=== PATIENT | female | born 1945 | race Caucasian/White ===

== ENCOUNTER 2018-04-24 12:31 | Inpatient (IN) | payer OTHER ==
--- NOTE | 2018-04-24 13:01 | EDPHY ---
H & P Time Seen by Provider: 04/24/18 13:00 HPI/ROS: Chief complaint. Diarrhea HPI. Patient is 72-year-old female presents with complaint diarrhea for 2 weeks. She is visiting from [place] and arrived about a week ago. She is staying until May 17. Diarrhea was already starting prior to arrival in [place]. She has not been on antibiotics recently. No blood in stool. She has vomited 3 times over the past 2 weeks. Diarrhea however is daily and precipitated by eating. She has no abdominal pain. She does have some right low back pain. Worse with movement. No chest pain, shortness of breath, fever. ROS 10 systems were reviewed and negative with the exception of the elements mentioned in the history of present illness Past Medical/Surgical History: Past medical history significant for chronic renal insufficiency, lupus, osteoporosis, macular degeneration, rheumatoid arthritis Social History: Single, nonsmoker, no alcohol Smoking Status: Never smoked Physical Exam: General Appearance: Alert pleasant well-developed female mild distress vital signs are stable Eyes: Pupils equal and round no pallor or injection. ENT, Mouth: Mucous membranes are moist. Respiratory: There are no retractions, lungs are clear to auscultation. Cardiovascular: Regular rate and rhythm. Gastrointestinal: Abdomen is soft and nontender, no masses, bowel sounds normal. Neurological: Awake and alert, sensory and motor exams grossly normal. Skin: Warm and dry, no rashes. Musculoskeletal: Neck is supple nontender. Tenderness on the right side adjacent to mid lumbar the back. Worse with palpation and movement Extremities symmetrical, full range of motion. Psychiatric: Patient is oriented X 3, there is no agitation. Constitutional: Initial Vital Signs Temperature (C) 36.4 C 04/24/18 12:36 Heart Rate 96 04/24/18 12:36 Respiratory Rate 16 04/24/18 12:36 Blood Pressure 136/94 H 04/24/18 12:36 O2 Sat (%) 95 04/24/18 12:36 O2 Delivery Mode Room Air Allergies/Adverse Reactions: Penicillins Allergy (Verified 04/24/18 12:35) Home Medications: Medication Instructions Recorded ACETAZOLAMIDE 04/24/18 Atorvastatin Calcium 04/24/18 Cartia Xt 04/24/18 Famotidine 04/24/18 Iron 04/24/18 Levothyroxine 04/24/18 Losartan Potassium 04/24/18 Mycophenolate Mofetil 04/24/18 Ondansetron HCl Pf 04/24/18 Prednisone 04/24/18 Prevalite Packet 04/24/18 Tramadol HCl 04/24/18 VENLAFAXINE HCL 04/24/18 Vitamin D3 04/24/18 Medical Decision Making Procedures: IV normal saline ED Course/Re-evaluation: Re-evaluation 2:10 p.m. Patient is stable. She has had 1 L saline but still no urge to urinate. No diarrhea. Patient and I discussed laboratory evaluation. Patient does not know what her baseline BUN and creatinine are. She will be given another L of saline Re-evaluation at 3:10 p.m.. Patient is stable. She has now had her 2nd L of saline and still no urge to urinate. No diarrhea. She will be given a third L of saline Repeat Chem 7 shows a potassium 2.8. She still has some acidosis with a CO2 of 14. Patient is given supplemental potassium orally and IV in the emergency department Patient and I discussed treatment plan including recommendation for admission. She expresses understanding and agreement I consulted and discussed the case with Dr. Atkinson, hospitalist, who agrees to the admission Differential Diagnosis: Patient with a history of chronic renal insufficiency visiting from [facility] and we do not know her baseline renal function. She has had diarrhea for 2 weeks this could certainly be Clostridium difficile though there were no preceding antibiotics. She is unable to give us a stool sample. She has significant hypokalemia. - Data Points Laboratory Results: Laboratory Results 04/24/18 13:15 04/24/18 04/24/18 04/24/18 16:16 15:41 15:25 WBC RBC Hgb Hct MCV MCH MCHC RDW Plt Count MPV Neut % (Auto) Lymph % (Auto) [place] % (Auto) Eos % (Auto) Baso % (Auto) Nucleat RBC Rel Count Absolute Neuts (auto) Absolute Lymphs (auto) Absolute Monos (auto) Absolute Eos (auto) Absolute Basos (auto) Absolute Nucleated RBC Immature Gran % Immature Gran # Platelet Estimate Sodium Pending 141 mEq/L mEq/L (135-145) Potassium Pending 2.8 mEq/L L mEq/L (3.5-5.2) Chloride Pending 113 mEq/L H mEq/L (97-110) Carbon Dioxide Pending 14 mEq/l L mEq/l (22-31) Anion Gap Pending 14 mEq/L mEq/L (6-14) BUN Pending 29 mg/dL H mg/dL (7-23) Creatinine Pending 1.7 mg/dL H mg/dL (0.6-1.0) Estimated GFR Pending 30 Glucose Pending 104 mg/dL H mg/dL (70-100) Calcium Pending 8.5 mg/dL mg/dL (8.5-10.4) Specimen Hemolysis Urine Color YELLOW Urine Appearance CLEAR Urine pH 5.0 (5.0-7.5) Ur Specific [place] 1.010 (1.002-1.030) Urine Protein 1+ H (NEGATIVE) Urine Ketones TRACE H (NEGATIVE) Urine Blood 1+ H (NEGATIVE) Urine Nitrate NEGATIVE (NEGATIVE) Urine Bilirubin NEGATIVE (NEGATIVE) Urine Urobilinogen NEGATIVE EU EU (0.2-1.0) Ur Leukocyte Esterase 1+ H (NEGATIVE) Urine RBC 1-3 /hpf /hpf (0-3) Urine WBC 10-15 /hpf H /hpf (0-3) Ur Epithelial Cells TRACE /lpf /lpf (NONE-1+) Urine Bacteria TRACE /hpf H /hpf (NONE SEEN) Hyaline Casts 1-5 /lpf /lpf (0-1) Urine Mucus TRACE /lpf /lpf (NONE-1+) Urine Glucose NEGATIVE (NEGATIVE) 04/24/18 04/24/18 04/24/18 13:15 12:55 12:55 WBC 13.55 10^3/uL H 10^3/uL REJ (3.80-9.50) RBC 4.68 10^6/uL 10^6/uL REJ (4.18-5.33) Hgb 12.3 g/dL L g/dL REJ (12.6-16.3) Hct 39.6 % % REJ (38.0-47.0) MCV 84.6 fL fL REJ (81.5-99.8) MCH 26.3 pg L pg REJ (27.9-34.1) MCHC 31.1 g/dL L g/dL REJ (32.4-36.7) RDW 19.2 % H % REJ (11.5-15.2) Plt Count 391 10^3/uL 10^3/uL REJ (150-400) MPV 9.2 fL fL REJ (8.7-11.7) Neut % (Auto) 91.1 % H % REJ (39.3-74.2) Lymph % (Auto) 4.4 % L % REJ (15.0-45.0) [place] % (Auto) 3.7 % L % REJ (4.5-13.0) Eos % (Auto) 0.2 % L % REJ (0.6-7.6) Baso % (Auto) 0.1 % L % REJ (0.3-1.7) Nucleat RBC Rel Count 0.0 % % REJ (0.0-0.2) Absolute Neuts (auto) 12.35 10^3/uL H 10^3/uL REJ (1.70-6.50) Absolute Lymphs (auto) 0.59 10^3/uL L 10^3/uL REJ (1.00-3.00) Absolute Monos (auto) 0.50 10^3/uL 10^3/uL REJ (0.30-0.80) Absolute Eos (auto) 0.03 10^3/uL 10^3/uL REJ (0.03-0.40) Absolute Basos (auto) 0.01 10^3/uL L 10^3/uL REJ (0.02-0.10) Absolute Nucleated RBC 0.00 10^3/uL 10^3/uL REJ (0-0.01) Immature Gran % 0.5 % % REJ (0.0-1.1) Immature Gran # 0.07 10^3/uL 10^3/uL REJ (0.00-0.10) Platelet Estimate TNP Sodium 140 mEq/L mEq/L (135-145) Potassium 3.6 mEq/L mEq/L (3.5-5.2) Chloride 114 mEq/L H mEq/L (97-110) Carbon Dioxide 15 mEq/l L mEq/l (22-31) Anion Gap 11 mEq/L mEq/L (6-14) BUN 30 mg/dL H mg/dL (7-23) Creatinine 1.6 mg/dL H mg/dL (0.6-1.0) Estimated GFR 32 Glucose 104 mg/dL H mg/dL (70-100) Calcium 8.5 mg/dL mg/dL (8.5-10.4) Specimen Hemolysis 112 Urine Color Urine Appearance Urine pH Ur Specific [place] Urine Protein Urine Ketones Urine Blood Urine Nitrate Urine Bilirubin Urine Urobilinogen Ur Leukocyte Esterase Urine RBC Urine WBC Ur Epithelial Cells Urine Bacteria Hyaline Casts Urine Mucus Urine Glucose Medications Given: Discontinued Medications Sodium Chloride (Ns) 1,000 mls @ 0 mls/hr IV EDNOW ONE; Wide Open PRN Reason: Protocol Stop: 04/24/18 13:05 Last Admin: 04/24/18 13:15 Dose: 1,000 mls Sodium Chloride (Ns) 1,000 mls @ 0 mls/hr IV ONCE ONE; Wide Open PRN Reason: Protocol Stop: 04/24/18 14:17 Last Admin: 04/24/18 14:38 Dose: 1,000 mls Sodium Chloride (Ns) 1,000 mls @ 0 mls/hr IV ONCE ONE; Wide Open PRN Reason: Protocol Stop: 04/24/18 15:15 Last Admin: 04/24/18 15:57 Dose: Not Given Miscellaneous Medication (Icy Hot Lidocaine/Menthol 4%/1% Patch) 1 patch TD EDNOW ONE Stop: 04/24/18 15:17 Last Admin: 04/24/18 15:22 Dose: 1 patch Departure - Departure Disposition: [facility] Clinical Impression: Hypokalemia Diarrhea Qualifiers: Diarrhea type: unspecified type Qualified Code(s): R19.7 - Diarrhea, unspecified Condition: Fair Referrals: Morales Townsend, [Primary Care Provider] - As per Instructions
[2018-04-24] MEDS ORDERED: NS 1,000 ML IV ONE ×2 (13:04→14:16)
[2018-04-24 13:41] LABS: PLATELET COUNT 391 10^3/uL (150-400)
[2018-04-24] MEDS ORDERED: LIDOCAINE 4%/MENTHOL 1% PATCH TD ONE (15:16)
[2018-04-24] MEDS: NS 1,000 ML IV ONE ×2 (15:22→15:57)
[2018-04-24] MEDS ORDERED: POTASSIUM CL 20 MEQ TAB PO ONE (16:26)
[2018-04-24] MEDS ORDERED: POTASSIUM Cl (KCl) 20 MEQ in 1/2 NS 1,000 ML IV SCH ×2 (16:30→17:00)
--- NOTE | 2018-04-24 16:55 | PDGENHP ---
History and Physical - Chief Complaint Dehydration - History of Present Illness This 72-year-old female visiting from [place] with history of lupus, lupus nephritis, and subsequent stage 3 chronic kidney disease. Patient has had diarrhea for the past 2 weeks. She reports 6 nonbloody stools per day. Couple days ago she had 3-4 bouts of emesis. Her appetite has been very poor. She denies any fevers but has some chills. She was seen by her daughters primary care provider Dr. Townsend earlier today was subsequently referred to the emergency department for further evaluation. In the emergency department today gave her some IV fluids and noted low potassium and asked me to admit the patient to the hospital for further evaluation and treatment. Patient has not had any diarrhea since coming to the hospital. History Information - Allergies/Home Medication List Allergies/Adverse Reactions: Penicillins Allergy (Verified 04/24/18 12:35) Home Medications: ACETAZOLAMIDE 04/24/18 [Last Taken Unknown] Atorvastatin Calcium 04/24/18 [Last Taken Unknown] Cartia Xt 04/24/18 [Last Taken Unknown] Famotidine 04/24/18 [Last Taken Unknown] Iron 04/24/18 [Last Taken Unknown] Levothyroxine 04/24/18 [Last Taken Unknown] Losartan Potassium 04/24/18 [Last Taken Unknown] Mycophenolate Mofetil 04/24/18 [Last Taken Unknown] Ondansetron HCl Pf 04/24/18 [Last Taken Unknown] Prednisone 04/24/18 [Last Taken Unknown] Prevalite Packet 04/24/18 [Last Taken Unknown] Tramadol HCl 04/24/18 [Last Taken Unknown] VENLAFAXINE HCL 04/24/18 [Last Taken Unknown] Vitamin D3 04/24/18 [Last Taken Unknown] I have personally reviewed and updated: family history, medical history, social history, surgical history Past Medical History: SLE, lupus nephritis, stage 3 chronic kidney disease with unknown baseline creatinine, heart murmur - Surgical History Additional surgical history: Right total knee arthroplasty - Social History Smoking Status: Never smoked Alcohol Use: None Drug Use: None Review of Systems Review of Systems: ROS: 10pt was reviewed & negative except for what was stated in HPI & below Physical Exam Physical Exam: Temp Pulse Resp BP Pulse Ox 36.4 C 82 18 133/58 H 97 04/24/18 12:36 04/24/18 16:28 04/24/18 16:28 04/24/18 16:28 04/24/18 16:28 Constitutional: no apparent distress, appears nourished, not in pain Eyes: PERRL, anicteric sclera, EOMI Ears, Nose, Mouth, Throat: moist mucous membranes, hearing normal, ears appear normal, no oral mucosal ulcers Cardiovascular: regular rate and rhythym, systolic murmur (Holosystolic grade 4 blowing murmur loudest left upper sternal border), No edema Respiratory: no respiratory distress, no rales or rhonchi, clear to auscultation Gastrointestinal: normoactive bowel sounds, soft, non-tender abdomen, no palpable masses Genitourinary: no bladder fullness, no bladder tenderness Skin: warm, normal color, no rashes or abrasions, no fluctuance, no induration, No mottled Musculoskeletal: full muscle strength, no muscle tenderness, normal joint ROM, no joint effusions Neurologic: AAOx3, CN II-XII Intact, No facial droop Psychiatric: interacting appropriately, not anxious, not encephalopathic, thought process linear Lymph, Heme, Immunologic: no cervical LAD, no supraclavicular LAD Lab Data & Imaging Review 04/24/18 13:15 04/24/18 16:16 WBC 13.55 10^3/uL (3.80-9.50) H 04/24/18 13:15 RBC 4.68 10^6/uL (4.18-5.33) 04/24/18 13:15 Hgb 12.3 g/dL (12.6-16.3) L 04/24/18 13:15 Hct 39.6 % (38.0-47.0) 04/24/18 13:15 MCV 84.6 fL (81.5-99.8) 04/24/18 13:15 MCH 26.3 pg (27.9-34.1) L 04/24/18 13:15 MCHC 31.1 g/dL (32.4-36.7) L 04/24/18 13:15 RDW 19.2 % (11.5-15.2) H 04/24/18 13:15 Plt Count 391 10^3/uL (150-400) 04/24/18 13:15 MPV 9.2 fL (8.7-11.7) 04/24/18 13:15 Neut % (Auto) 91.1 % (39.3-74.2) H 04/24/18 13:15 Lymph % (Auto) 4.4 % (15.0-45.0) L 04/24/18 13:15 [place] % (Auto) 3.7 % (4.5-13.0) L 04/24/18 13:15 Eos % (Auto) 0.2 % (0.6-7.6) L 04/24/18 13:15 Baso % (Auto) 0.1 % (0.3-1.7) L 04/24/18 13:15 Nucleat RBC Rel Count 0.0 % (0.0-0.2) 04/24/18 13:15 Absolute Neuts (auto) 12.35 10^3/uL (1.70-6.50) H 04/24/18 13:15 Absolute Lymphs (auto) 0.59 10^3/uL (1.00-3.00) L 04/24/18 13:15 Absolute Monos (auto) 0.50 10^3/uL (0.30-0.80) 04/24/18 13:15 Absolute Eos (auto) 0.03 10^3/uL (0.03-0.40) 04/24/18 13:15 Absolute Basos (auto) 0.01 10^3/uL (0.02-0.10) L 04/24/18 13:15 Absolute Nucleated RBC 0.00 10^3/uL (0-0.01) 04/24/18 13:15 Immature Gran % 0.5 % (0.0-1.1) 04/24/18 13:15 Immature Gran # 0.07 10^3/uL (0.00-0.10) 04/24/18 13:15 Platelet Estimate TNP 04/24/18 13:15 Sodium REJ 04/24/18 16:16 Potassium TNP 04/24/18 16:16 Chloride TNP 04/24/18 16:16 Carbon Dioxide TNP 04/24/18 16:16 Anion Gap TNP 04/24/18 16:16 BUN TNP 04/24/18 16:16 Creatinine TNP 04/24/18 16:16 Estimated GFR TNP 04/24/18 16:16 Glucose TNP 04/24/18 16:16 Calcium TNP 04/24/18 16:16 Specimen Hemolysis 112 04/24/18 12:55 Urine Color YELLOW 04/24/18 15:25 Urine Appearance CLEAR 04/24/18 15:25 Urine pH 5.0 (5.0-7.5) 04/24/18 15:25 Ur Specific [place] 1.010 (1.002-1.030) 04/24/18 15:25 Urine Protein 1+ (NEGATIVE) H 04/24/18 15:25 Urine Ketones TRACE (NEGATIVE) H 04/24/18 15:25 Urine Blood 1+ (NEGATIVE) H 04/24/18 15:25 Urine Nitrate NEGATIVE (NEGATIVE) 04/24/18 15:25 Urine Bilirubin NEGATIVE (NEGATIVE) 04/24/18 15:25 Urine Urobilinogen NEGATIVE EU (0.2-1.0) 04/24/18 15:25 Ur Leukocyte Esterase 1+ (NEGATIVE) H 04/24/18 15:25 Urine RBC 1-3 /hpf (0-3) 04/24/18 15:25 Urine WBC 10-15 /hpf (0-3) H 04/24/18 15:25 Ur Epithelial Cells TRACE /lpf (NONE-1+) 04/24/18 15:25 Urine Bacteria TRACE /hpf (NONE SEEN) H 04/24/18 15:25 Hyaline Casts 1-5 /lpf (0-1) 04/24/18 15:25 Urine Mucus TRACE /lpf (NONE-1+) 04/24/18 15:25 Urine Glucose NEGATIVE (NEGATIVE) 04/24/18 15:25 Assessment & Plan Assessment: This is a 72-year-old female with history of SLE, stage 3 chronic kidney disease due to lupus nephritis presenting with: #Diarrhea: Unclear etiology. Plan: Stool pathogen panel is pending. Will also order of my Danita ventilate level since diarrhea is unknown adverse effect of this medication. # Hypokalemia (Acute) Plan: Will replace per protocol # suspected acute on chronic renal failure with unknown baseline creatinine Plan: Will provide gentle IV hydration overnight. Will attempt to obtain the patient's medical records from her primary care provider in the morning. # loud holosystolic heart murmur(asymptomatic) Plan: Recommend outpatient workup upon return home to [place] # pyuria(asymptomatic) Plan: Consider treatment if he becomes symptomatic or develops signs or symptoms of acute infection Place in observation status
[2018-04-24] MEDS ORDERED: PROTOCOL POTASSIUM 1 DOSE MISC PRN (17:00)
[2018-04-24] MEDS ORDERED: 1/2 NS 1,000 ML IV SCH (17:00)
[2018-04-24] MEDS ORDERED: PROTOCOL MAGNESIUM 1 DOSE IV PRN (17:00)
[2018-04-24] MEDS ORDERED: MAGNESIUM SULF 1 GM/DEXTROSE 100 ML IV ONE (18:06)
[2018-04-24] MEDS ORDERED: CHOLESTYRAMINE/SUCROSE 4 GM PKT PO PRN (19:02)
[2018-04-24] MEDS ORDERED: POTASSIUM CL 10 MEQ TAB PO ONE (19:19)
[2018-04-24] MEDS: ATORVASTATIN CALCIUM 10 MG TAB PO SCH (20:31)
[2018-04-24] MEDS ORDERED: FAMOTIDINE 20 MG TAB PO SCH (21:00)
[2018-04-24] MEDS ORDERED: PATCH REMOVAL 1 EA PATCH TD SCH (21:00)
[2018-04-24] MEDS: MYCOPHENOLATE MOFETIL 250 MG CAP PO SCH (22:08)
[2018-04-25 04:43] LABS: PLATELET COUNT 328 10^3/uL (150-400)
[2018-04-25] MEDS: LEVOTHYROXINE 75 MCG TAB PO SCH (06:46)
[2018-04-25] MEDS: MYCOPHENOLATE MOFETIL 250 MG CAP PO SCH ×2 (08:45→21:18)
[2018-04-25] MEDS: predniSONE 5 MG TAB PO SCH (08:47)
[2018-04-25] MEDS: CHOLECALCIFEROL VIT D3 1,000 UNITS TAB PO SCH (08:47)
[2018-04-25] MEDS: VENLAFAXINE HCL 75 MG TAB PO SCH (08:47)
[2018-04-25] MEDS ORDERED: POTASSIUM CL 10 MEQ TAB PO ONE ×2 (08:51→20:12)
[2018-04-25] MEDS: traMADol 50 MG TAB PO PRN (10:09)
[2018-04-25] MEDS: ONDANSETRON DISINTEGRATING 4 MG TAB PO PRN (10:24)
[2018-04-25] MEDS: hydrALAZINE 20 MG/ML VIAL IVP PRN ×2 (10:25→23:52)
[2018-04-25] MEDS ORDERED: NS W/ 20 KCl/L 1,000 ML IV SCH (12:30)
--- NOTE | 2018-04-25 13:08 | HOSPPROG ---
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 admitted for dehydration and diarrhea #Diarrhea: improving -Norovirus -Do not suspect Cell cept (level pending) or Acetazolamide or other med was contributing # Hypokalemia -Will replace per protocol #Metabolic Acidosis -Etiology likely multifactorial: 2nd to dehydration, acidosis, and Acetazolamide -Stable -cont IVF and hold Acetazolamide ?Pseudotumor Cerebri -chronic hx -denies NAQVI, visual deficits -Holding Acetazolamide #Dehydration: -IVF # suspected acute on chronic renal failure with unknown baseline creatinine -IVF #HTN: -Hold Losartan -Start Hydralazine PRN # loud holosystolic heart murmur(asymptomatic) -Recommend outpatient workup upon return home to [place] # pyuria(asymptomatic) -no abx at this time DVT Proph: likely high risk. Start Lovenox, renally dosed Dispo: Change to inpatient. Still symptomatic. provide more hydration Subjective: some oral intake, feels better overall. afebrile. diarrhea is improving Objective: Vital Signs Temp Pulse Resp BP Pulse Ox 37.0 C 99 15 141/77 H 98 04/25/18 11:53 04/25/18 11:53 04/25/18 11:53 04/25/18 11:53 04/25/18 11:53 Microbiology 04/24/18 18:15 Gastrointestinal Tract Panel (PCR) - Final Stool Norovirus Gi/Gii Laboratory Results 04/25/18 03:27 04/25/18 03:27 04/24/18 04/25/18 04/26/18 05:59 05:59 05:59 Intake Total 800 700 Output Total 700 Balance 800 0 - Physical Exam Constitutional: no apparent distress Eyes: PERRL Ears, Nose, Mouth, Throat: dry mucous membranes Cardiovascular: regular rate and rhythym, no murmur, rub, or gallop, systolic murmur Respiratory: no respiratory distress, no rales or rhonchi, clear to auscultation Gastrointestinal: normoactive bowel sounds, soft, non-tender abdomen, no palpable masses Skin: warm Neurologic: AAOx3 Psychiatric: interacting appropriately, not anxious, not encephalopathic Lymph, Heme, Immunologic: No petechiae ICD10 Worksheet Patient Problems: Problems Problem Status Onset Diarrhea Acute Hypokalemia Acute
[2018-04-25] MEDS: ACETAMINOPHEN 325 MG TAB PO PRN (14:01)
[2018-04-25] MEDS: FAMOTIDINE 20 MG TAB PO SCH (14:02)
[2018-04-25] MEDS: ENOXAPARIN 30 MG/0.3 ML SYR SC SCH (14:05)
--- NOTE | 2018-04-25 15:36 | ASMTCMCOM ---
CM Note CM Note Notes: Discussed pt in rounds. Pt lives in [place] and is here visiting daughter who has 8 month old infant. Pt admitted for norovirus, diarrhea and hypokalemia in the setting of Lupus and Lupus nephritis with Stage 3 CKD. Pt also has visual deficits related to a Pseudotumor. Pt will likely discharge tomorrow. Therapies ordered today to evaluate pt's ability to return to her daughter's home. Pt feels comfortable caring for herself independently, though she is using bedside commode and walker in the room. Pt provided with loan closet list in case she needs equipment for her dtr's house. CM to follow. D/C Plan: Independent to dtr's house. Date Signed: 04/25/2018 03:36 PM Electronically Signed By:Meghna Reeves
--- NOTE | 2018-04-25 15:44 | PDMN ---
Medical Necessity Medical necessity: Change to inpt as of 04/25/18 @ 13:20. Pt meets inpt criteria per MD order and MCG M-170, Gastroenteritis. 72 y/o w/hx SLE and stage 3 chronic kidney disease due to lupus nephritis admitted w/diarrhea, acute hypokalemia (K 2.8 on admit), suspected acute on chronic renal failure ( creatinine 1.7 on admit- baseline unknown). Occ tach w/HR up to 103 today, HTN- requiring IV Hydralazine today. Upgraded to inpt for cont symptoms/dehydration, need for IVF, rehydration, potassium still low, although improved, at 3.3- cont to replace, creatinine 1.4. Est LOS>2MN for ongoing eval/management of above.
[2018-04-25] MEDS: ATORVASTATIN CALCIUM 10 MG TAB PO SCH (21:18)
[2018-04-25] MEDS ORDERED: POTASSIUM CL 10 MEQ TAB ONE (21:21)
[2018-04-25] MEDS: CALCIUM CARBONATE 500 MG CHEWABLE TAB PO PRN (23:54)
[2018-04-26] MEDS: ONDANSETRON DISINTEGRATING 4 MG TAB PO PRN ×2 (01:35→11:39)
[2018-04-26 04:29] LABS: PLATELET COUNT 340 10^3/uL (150-400)
[2018-04-26] MEDS: LEVOTHYROXINE 75 MCG TAB PO SCH (05:13)
[2018-04-26] MEDS ORDERED: POTASSIUM CL 10 MEQ TAB PO ONE (07:28)
[2018-04-26] MEDS ORDERED: POTASSIUM CL 20 MEQ/15 ML UDCUP PO ONE (07:45)
[2018-04-26] MEDS: MYCOPHENOLATE MOFETIL 250 MG CAP PO SCH ×2 (08:38→19:46)
[2018-04-26] MEDS: CHOLECALCIFEROL VIT D3 1,000 UNITS TAB PO SCH (08:39)
[2018-04-26] MEDS: ENOXAPARIN 30 MG/0.3 ML SYR SC SCH (08:39)
[2018-04-26] MEDS: predniSONE 5 MG TAB PO SCH (08:39)
[2018-04-26] MEDS: FAMOTIDINE 20 MG TAB PO SCH (08:39)
[2018-04-26] MEDS: VENLAFAXINE HCL 75 MG TAB PO SCH (08:39)
[2018-04-26] MEDS: traMADol 50 MG TAB PO PRN (10:49)
--- NOTE | 2018-04-26 11:23 | HOSPPROG ---
Hospitalist Progress Note Assessment/Plan: # acute norovirus with gastroenteritis on chronic immunosuppression with dehydration # suspect CKD, unknown baseline SCr - follow tomorrow # NAGMA - suspect combination of renal and GI - follow on LR # tachycardia - d/t back pain or relative hypovolemia - follow with treatment of both (pain control and IVF) # lupus nephritis - cont pred, cellcept (level pending) # pseudotumor cerebri - holding diamox # hypothyroid - synthroid # htn - restart losartan at 1/2 dose - recheck BMP tomorrow # back pain - will treat as msk; consider PE but less likely overall # systolic murmur - f/u in [place] # asymptomatic bacteriuria - low colony counts, doubt UTI # dvt ppx - lovenox Subjective: c/o severe R sided back pain, starting while driving here; still having diarrhea; emesis x 1 last night Objective: Vital Signs Temp Pulse Resp BP Pulse Ox 37.0 C 115 H 15 158/90 H 97 04/26/18 07:46 04/26/18 07:46 04/26/18 07:46 04/26/18 07:46 04/26/18 07:46 Laboratory Results 04/26/18 03:47 04/26/18 03:47 04/25/18 04/26/18 04/27/18 05:59 05:59 05:59 Intake Total 2175 Output Total 2450 600 Balance -275 -600 chart reviewed high risk with ongoing viral gastroenteritis and renal insufficiency - Physical Exam Constitutional: uncomfortable, other (sitting on commode) Cardiovascular: systolic murmur, tachycardia, No irregularly irregular Respiratory: no respiratory distress, no rales or rhonchi, clear to auscultation Gastrointestinal: soft, non-tender abdomen, no palpable masses ICD10 Worksheet Patient Problems: Problems Problem Status Onset Diarrhea Acute Hypokalemia Acute
[2018-04-26] MEDS: oxyCODONE IR 5 MG TAB PO PRN ×2 (11:28→19:55)
[2018-04-26] MEDS: LR 1,000 ML IV SCH ×2 (11:29→19:49)
[2018-04-26] MEDS: LOSARTAN POTASSIUM 50 MG TAB PO SCH (11:39)
--- NOTE | 2018-04-26 13:39 | ASMTCMCOM ---
CM Note CM Note Notes: 04/26/2018 Case Management Note Met w/pt to discuss d/c needs. Pt is staying with her daughter until after May 15 2018 in [place]. Pt lives independently in [place]. Daughter Etta can be reached at [phone]. Discussed PT recommendation for home care. Pt is agreeable to referrals. Faxed multiple referrals to [facility] home care agencies. Pt is unsure of insurance coverage benefits. Case Management d/c poc: Home Care in daughter's house pending acceptance and insurance auth Case Management to follow. Date Signed: 04/26/2018 01:39 PM Electronically Signed By:Jelena Pompa RN
[2018-04-26] MEDS: hydrALAZINE 20 MG/ML VIAL IVP PRN (17:21)
[2018-04-26] MEDS: ATORVASTATIN CALCIUM 10 MG TAB PO SCH (19:46)
[2018-04-27] MEDS ORDERED: POTASSIUM CL 10 MEQ TAB PO ONE ×2 (02:25→11:20)
[2018-04-27] MEDS ORDERED: POTASSIUM CL 20 MEQ/15 ML UDCUP PO ONE ×2 (03:00→11:45)
[2018-04-27] MEDS: LEVOTHYROXINE 75 MCG TAB PO SCH (05:37)
[2018-04-27] MEDS: LR 1,000 ML IV SCH ×2 (05:39→16:05)
[2018-04-27] MEDS: ACETAMINOPHEN 325 MG TAB PO PRN ×2 (05:43→09:59)
[2018-04-27] MEDS: predniSONE 5 MG TAB PO SCH (10:00)
[2018-04-27] MEDS: CHOLECALCIFEROL VIT D3 1,000 UNITS TAB PO SCH (10:00)
[2018-04-27] MEDS: VENLAFAXINE HCL 75 MG TAB PO SCH (10:01)
[2018-04-27] MEDS: MYCOPHENOLATE MOFETIL 250 MG CAP PO SCH (10:01)
[2018-04-27] MEDS: FAMOTIDINE 20 MG TAB PO SCH (10:02)
[2018-04-27] MEDS: LOSARTAN POTASSIUM 50 MG TAB PO SCH (10:02)
[2018-04-27] MEDS: ENOXAPARIN 30 MG/0.3 ML SYR SC SCH (10:02)
[2018-04-27] MEDS: oxyCODONE IR 5 MG TAB PO PRN ×2 (15:02→21:47)
--- NOTE | 2018-04-27 15:13 | ASMTCMCOM ---
CM Note CM Note Notes: 04/27/2018 Case Management Note Discussed pt during rounds this morning. Onsite visit from [place] with [facility]. Per Hetal, Dr. Brian Crowell will provide oversight for home care providers upon discharge. Case Management d/c poc: [facility] at pt daughter home. Case Management to follow. Date Signed: 04/27/2018 03:12 PM Electronically Signed By:Jelena Pompa RN
--- NOTE | 2018-04-27 16:26 | HOSPPROG ---
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 Is improved overall but overall unchanged since yesterday -Norovirus + -Other etiology could be Cell Cept mediated, see below -Acetazolamide can also cause but this has been stopped. # Hypokalemia: resolved -Will replace PRN per protocol #NAG Metabolic Acidosis -I reviewed her previous labs in 2018 which are in her paper chart. They are c/ w with CO2 levels of 12-22. Most have been in the 16 -17 range -Even with IVF and holding Acetazolamide, the CO level has stayed around 13 -She has several reasons for Acidosis including Dehydration, Diarrhea, Chronic Renal Failure, Acetazolamide, and Cell Cept -Given no improvement, I will obtain a Nephrology consult. While we are waiting for their reccs, will provide oral Sodium Bicarbonate -cont IVF and hold Acetazolamide -I attempted to call her Hall Cleaner and PCP today but their work day has concluded and they were not available ?Pseudotumor Cerebri -chronic hx -denies NAQVI, visual deficits -Holding Acetazolamide #Dehydration: -appears clinically improved -cont IVF for now, pending renal consult # Acute on chronic renal failure: Her baseline Cr is 1.3-1.7. She is at baseline #HTN: -Losartan has been restarted at a lower dose. 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 She has not abd pain at this time. If diarrhea is persistent , we may need to have a GI consult # loud holosystolic heart murmur(asymptomatic) -Recommend outpatient workup upon return home to [place]. She reports that this has been done and no interventions are needed # pyuria(asymptomatic) -no abx at this time DVT Proph: Lovenox Dispo: Continue Inpatient Subjective: still with diarrhea. no abd pain. no n/v Objective: Vital Signs Temp Pulse Resp BP Pulse Ox 36.6 C 104 H 19 140/90 H 96 12/14/18 14:14 12/14/18 14:14 04/27/18 14:14 04/27/18 14:14 04/27/18 14:14 Laboratory Results 04/26/18 03:47 04/27/18 10:50 04/26/18 04/27/18 04/28/18 05:59 05:59 05:59 Intake Total 2175 1268 986 Output Total 2450 1350 Balance -275 -82 986 - Time Spent With Patient Time Spent with Patient: greater than 35 minutes Time Spent with Patient: Greater than 35 minutes spent on this patients care, greater than 50% of time spent counseling, educating, and coordinating care regarding the above mentioned plan. - Physical Exam Constitutional: no apparent distress Eyes: PERRL Ears, Nose, Mouth, Throat: moist mucous membranes, hearing normal Cardiovascular: regular rate and rhythym, No edema Respiratory: no respiratory distress, no rales or rhonchi, clear to auscultation Gastrointestinal: normoactive bowel sounds, soft, non-tender abdomen Skin: warm Neurologic: AAOx3 Psychiatric: interacting appropriately, not anxious, not encephalopathic Lymph, Heme, Immunologic: No petechiae ICD10 Worksheet Patient Problems: Problems Problem Status Onset Diarrhea Acute Hypokalemia Acute
[2018-04-27] MEDS: SODIUM BICARBONATE 650 MG TAB PO SCH ×2 (17:25→21:18)
[2018-04-27] MEDS ORDERED: SODIUM BICARBONATE 650 MG TAB PO SCH (21:00)
[2018-04-27] MEDS: ATORVASTATIN CALCIUM 10 MG TAB PO SCH (21:17)
[2018-04-27] MEDS: PROMETHAZINE HCL 25 MG/ML INJ IVP PRN (21:43)
[2018-04-28] MEDS: LR 1,000 ML IV SCH (02:11)
[2018-04-28 04:40] LABS: PLATELET COUNT 288 10^3/uL (150-400)
[2018-04-28] MEDS: PROMETHAZINE HCL 25 MG/ML INJ IVP PRN (04:47)
[2018-04-28] MEDS: LEVOTHYROXINE 75 MCG TAB PO SCH (05:15)
[2018-04-28] MEDS: oxyCODONE IR 5 MG TAB PO PRN ×2 (06:05→11:38)
[2018-04-28] MEDS ORDERED: MYCOPHENOLATE MOFETIL 250 MG CAP PO SCH (09:00)
--- NOTE | 2018-04-28 09:15 | PDCONSULT ---
Professional Skateboarder Note: Assessment/Plan: CKD 3: from lupus nephritis, follows with a prevention specialist in [place]. Cr is better than baseline at 1.1, usual baseline around 1.5. - Continue to monitor. - Pt on IVFs. - Avoid hypotension and nephrotoxins. Metabolic acidosis: seems to be mostly from diarrhea at this time based on urine lytes but also has some decreased urinary acidification. Seems that is chronic and known to her prevention specialist, as she takes baking soda at home per instruction. Improving with sodium bicarb tabs. - Would not decrease her Cellcept dosage as she has tolerated medication for long time. - Will change IVFs to 1/2NS. - Will continue sodium bicarb tabs while inpatient. - On discharge, pt can resume taking baking soda per her usual, recommended she take daily while still having diarrhea. HTN: BP ok on current meds. Thank you for the interesting consult. Nephrology will sign off at this time, please call if you have any additional questions or concerns. Pt will need to f/ u wiht her home prevention specialist soon after returning to [place]. H & P Stated Complaint: n/v/d r side back pain, not eating well Hx kideney disease Time Seen by Provider: 04/24/18 13:00 HPI/ROS: HPI: Ms. Piper is a 72 yo F with h/o SLE, lupus nephritis and CKD 3 with baseline Cr around 1.5, follows with a prevention specialist in [place] where she lives. Pt is visiting here for [facility]. She came in on 04/24/18 for diarrhea that had been going on for 2 weeks, having up to 6 stools daily, also had a few bouts of emesis prior to presentation, poor appetite. Pt was found to have noravirus, is being treated with IVFs and supportive care and improving , but still having some diarrhea. She notes she has been on Cellcept for many years and has tolerated fine. She notes that her prevention specialist asked her to take baking soda at home at least a few times a week, she takes it more often to help with heartburn. She does not recall being told she had problem with acid levels before. Pt has had low bicarb while inpatient, prompting consult. ROS: positive per HPI, rest of 10-point ROS negative - Personal History Current Tetanus Diphtheria and Acellular Pertussis (TDAP): Yes - Medical/Surgical History Hx Asthma: No Hx Chronic Respiratory Disease: No Hx Diabetes: No Hx Cardiac Disease: No Hx Renal Disease: Yes Hx Cirrhosis: No Hx Alcoholism: No Hx HIV/AIDS: No Hx Splenectomy or Spleen Trauma: No Other PMH: stage 3 kidney failure, lupus, osteoporosis, heart murmur, macular degeneration, rheumatoid arthritis, fibromyalgia - Family History Significant Family History: No pertinent family hx - Social History Smoking Status: Never smoked - Physical Exam Exam: General: alert and oriented, no acute distress Eyes: EOMI, PERRL OP: Clear, MMM Neck: supple, no thyromegaly CV: RRR, no edema Resp: CTA bilat, nonlabored respirations Abd: Soft, NT/ND Neuro: CN II-XII Grossly intact, no asterixis Psych: cooperative, appropriate mood and affect Skin: C/D/I, no rash Constitutional: Initial Vital Signs Temperature (C) 36.4 C 04/24/18 12:36 Heart Rate 96 04/24/18 12:36 Respiratory Rate 16 04/24/18 12:36 Blood Pressure 136/94 H 04/24/18 12:36 O2 Sat (%) 95 04/24/18 12:36 O2 Delivery Mode Room Air Allergies/Adverse Reactions: Penicillins Allergy (Verified 04/24/18 12:35) Home Medications: Medication Instructions Recorded ACETAZOLAMIDE [Acetazolamide] 250 mg PO DAILY 04/24/18 Atorvastatin Calcium [Lipitor 10 10 mg PO HS 04/24/18 mg (*)] Cholecalciferol Vit D3 [Vitamin D3 1,000 units PO DAILY 04/24/18 (*)] Cholestyramine (with Sugar) 4 gm PO DAILY PRN 04/24/18 [Cholestyramine Packet] Famotidine [Pepcid 20 MG (*)] 20 mg PO BID 04/24/18 Levothyroxine [Synthroid 75 mcg 75 mcg PO DAILY06 04/24/18 (*)] Losartan Potassium 100 mg PO DAILY 04/24/18 Mycophenolate Mofetil [Cellcept] 1,000 mg PO BID 04/24/18 Ondansetron Odt [Zofran Odt 4 mg 4 mg PO BID PRN 04/24/18 (*)] Venlafaxine HCl [Venlafaxine 75MG 75 mg PO DAILY 04/24/18 (*)] predniSONE 5 mg PO DAILY 04/24/18 traMADol [Ultram 50 mg (*)] 50 mg PO HS 04/24/18 Lab and Imaging 04/28/18 03:57 04/28/18 03:57 WBC 6.88 10^3/uL (3.80-9.50) 04/28/18 03:57 RBC 3.83 10^6/uL (4.18-5.33) L 04/28/18 03:57 Hgb 9.7 g/dL (12.6-16.3) L 04/28/18 03:57 Hct 31.1 % (38.0-47.0) L 04/28/18 03:57 MCV 81.2 fL (81.5-99.8) L 04/28/18 03:57 MCH 25.3 pg (27.9-34.1) L 04/28/18 03:57 MCHC 31.2 g/dL (32.4-36.7) L 04/28/18 03:57 RDW 20.2 % (11.5-15.2) H 04/28/18 03:57 Plt Count 288 10^3/uL (150-400) 04/28/18 03:57 MPV 9.0 fL (8.7-11.7) 04/28/18 03:57 Neut % (Auto) 69.5 % (39.3-74.2) 04/28/18 03:57 Lymph % (Auto) 19.6 % (15.0-45.0) 04/28/18 03:57 [place] % (Auto) 7.1 % (4.5-13.0) 04/28/18 03:57 Eos % (Auto) 2.8 % (0.6-7.6) 04/28/18 03:57 Baso % (Auto) 0.3 % (0.3-1.7) 04/28/18 03:57 Nucleat RBC Rel Count 0.0 % (0.0-0.2) 04/28/18 03:57 Absolute Neuts (auto) 4.78 10^3/uL (1.70-6.50) 04/28/18 03:57 Absolute Lymphs (auto) 1.35 10^3/uL (1.00-3.00) 04/28/18 03:57 Absolute Monos (auto) 0.49 10^3/uL (0.30-0.80) 04/28/18 03:57 Absolute Eos (auto) 0.19 10^3/uL (0.03-0.40) 04/28/18 03:57 Absolute Basos (auto) 0.02 10^3/uL (0.02-0.10) 04/28/18 03:57 Absolute Nucleated RBC 0.00 10^3/uL (0-0.01) 04/28/18 03:57 Immature Gran % 0.7 % (0.0-1.1) 04/28/18 03:57 Immature Gran # 0.05 10^3/uL (0.00-0.10) 04/28/18 03:57 Platelet Estimate TNP 04/24/18 13:15 Puncture Site RIGHT RADIAL 04/27/18 15:25 Patient Temperature 37.0 DEGREES 04/27/18 15:25 pCO2 25 mmHg (34-38) L 04/27/18 15:25 pO2 74 mmHg (65-75) 04/27/18 15:25 Total CO2 14 mEq/L (23-27) L 04/27/18 15:25 ABG pH 7.34 (7.35-7.45) L 04/27/18 15:25 ABG HCO3 13 mEq/L (22-26) L 04/27/18 15:25 ABG O2 Saturation 96 % (92-95) H 04/27/18 15:25 ABG Base Excess -10.7 mEq/L (-2.5-2.5) L 04/27/18 15:25 O2 Concentration % ROOM AIR % (0-100) 04/27/18 15:25 Sodium 140 mEq/L (135-145) 04/28/18 03:57 Potassium 3.7 mEq/L (3.5-5.2) 04/28/18 03:57 Chloride 118 mEq/L (97-110) H 04/28/18 03:57 Carbon Dioxide 17 mEq/l (22-31) L 04/28/18 03:57 Anion Gap 5 mEq/L (6-14) L 04/28/18 03:57 BUN 15 mg/dL (7-23) 04/28/18 03:57 Creatinine 1.1 mg/dL (0.6-1.0) H 04/28/18 03:57 Estimated GFR 49 04/28/18 03:57 Glucose 72 mg/dL (70-100) 04/28/18 03:57 Calcium 8.2 mg/dL (8.5-10.4) L 04/28/18 03:57 Magnesium 1.6 mg/dL (1.6-2.3) 04/28/18 03:57 Specimen Hemolysis 112 04/24/18 12:55 Urine Color YELLOW 04/24/18 15:25 Urine Appearance CLEAR 04/24/18 15:25 Urine pH 5.0 (5.0-7.5) 04/24/18 15:25 Ur Specific [place] 1.010 (1.002-1.030) 04/24/18 15:25 Urine Protein 1+ (NEGATIVE) H 04/24/18 15:25 Urine Ketones TRACE (NEGATIVE) H 04/24/18 15:25 Urine Blood 1+ (NEGATIVE) H 04/24/18 15:25 Urine Nitrate NEGATIVE (NEGATIVE) 04/24/18 15:25 Urine Bilirubin NEGATIVE (NEGATIVE) 04/24/18 15:25 Urine Urobilinogen NEGATIVE EU (0.2-1.0) 04/24/18 15:25 Ur Leukocyte Esterase 1+ (NEGATIVE) H 04/24/18 15:25 Urine RBC 1-3 /hpf (0-3) 04/24/18 15:25 Urine WBC 10-15 /hpf (0-3) H 04/24/18 15:25 Ur Epithelial Cells TRACE /lpf (NONE-1+) 04/24/18 15:25 Urine Bacteria TRACE /hpf (NONE SEEN) H 04/24/18 15:25 Hyaline Casts 1-5 /lpf (0-1) 04/24/18 15:25 Urine Mucus TRACE /lpf (NONE-1+) 04/24/18 15:25 Ur Random Sodium 87 mEq/L (30-90) 04/27/18 19:00 Ur Random Potassium 11.8 mEq/L (0.5-35.0) 04/27/18 19:00 Ur Random Chloride 101 mEq/L 04/27/18 19:00 Urine Glucose NEGATIVE (NEGATIVE) 04/24/18 15:25 Mycophenolic Acid 6.0 mcg/mL (1.0 - 3.5) H 04/24/18 13:05 MPA Glucuronide 218 mcg/mL (35 - 100) H 04/24/18 13:05
[2018-04-28] MEDS: predniSONE 5 MG TAB PO SCH (10:39)
[2018-04-28] MEDS: CHOLECALCIFEROL VIT D3 1,000 UNITS TAB PO SCH (10:39)
[2018-04-28] MEDS: VENLAFAXINE HCL 75 MG TAB PO SCH (10:39)
[2018-04-28] MEDS: ENOXAPARIN 30 MG/0.3 ML SYR SC SCH (10:39)
[2018-04-28] MEDS: LOSARTAN POTASSIUM 50 MG TAB PO SCH (10:39)
[2018-04-28] MEDS: FAMOTIDINE 20 MG TAB PO SCH (10:39)
[2018-04-28] MEDS: SODIUM BICARBONATE 650 MG TAB PO SCH ×3 (10:40→21:00)
[2018-04-28] MEDS ORDERED: POTASSIUM CL 10 MEQ TAB PO ONE (12:13)
[2018-04-28] MEDS ORDERED: MAGNESIUM SULF 1 GM/DEXTROSE 100 ML IV ONE (12:17)
[2018-04-28] MEDS: 1/2 NS 1,000 ML IV SCH (12:23)
[2018-04-28] MEDS ORDERED: NS 1,000 ML IV ONE (12:53)
--- NOTE | 2018-04-28 13:19 | HOSPPROG ---
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 PLANS: * Continue IV hydration * Follow renal function labs closely * Increase activity as she is able * Diet as tolerated * Conservative measures for her back pain, will not use nonsteroidals due to her renal issues * Continue CellCept for lupus Seen by me today on hospitals rounds as well as multidisciplinary rounds will need ongoing IV therapy here Patient had many questions which I answered in detail for her SUBJECTIVE: Patient still feels fairly ill and weak She is having intermittent nausea but is able to keep some food and fluids in Still having diarrhea OBJECTIVE Vitals reviewed: Sinus tachycardia in the 120s this morning but stable blood pressure respirations and no fever Tombstone Setter, my review: Sinus tach Exam: alert oriented, fairly tired appearing Generalized weakness is noted skin warm dry color ok resps not labored lungs clear BSs heart regular abd soft nondistended nontender, bowel sounds present limbs warm, no edema iv site ok Laboratory data: Hemoglobin is decreased to 9.7 today BUN 15, creatinine 1.1, electrolytes okay Some hyperchloremia and is noted Objective: Vital Signs Temp Pulse Resp BP Pulse Ox 36.8 C 119 H 16 144/81 H 95 04/28/18 08:00 04/28/18 08:00 04/28/18 08:00 04/28/18 08:00 04/28/18 08:00 Laboratory Results 04/28/18 03:57 04/28/18 03:57 04/27/18 04/28/18 04/29/18 06:59 06:59 06:59 Intake Total 1268 1236 Output Total 1350 2049 Balance -82 -814 - Time Spent With Patient Time Spent with Patient: greater than 35 minutes Time Spent with Patient: Greater than 35 minutes spent on this patients care, greater than 50% of time spent counseling, educating, and coordinating care regarding the above mentioned plan. ICD10 Worksheet Patient Problems: Problems Problem Status Onset Diarrhea Acute Hypokalemia Acute
[2018-04-28] MEDS ORDERED: POTASSIUM CL 20 MEQ/15 ML UDCUP PO ONE (21:00)
[2018-04-28] MEDS: ATORVASTATIN CALCIUM 10 MG TAB PO SCH (21:00)
[2018-04-28] MEDS: MYCOPHENOLATE MOFETIL 250 MG CAP PO SCH (21:00)
[2018-04-29] MEDS: PROMETHAZINE HCL 25 MG/ML INJ IVP PRN (00:58)
[2018-04-29] MEDS: oxyCODONE IR 5 MG TAB PO PRN ×3 (02:14→22:31)
[2018-04-29] MEDS: CALCIUM CARBONATE 500 MG CHEWABLE TAB PO PRN ×3 (02:29→18:36)
[2018-04-29] MEDS: 1/2 NS 1,000 ML IV SCH (04:06)
[2018-04-29] MEDS: LEVOTHYROXINE 75 MCG TAB PO SCH (05:26)
[2018-04-29] MEDS: FAMOTIDINE 20 MG TAB PO SCH (07:04)
[2018-04-29] MEDS ORDERED: POTASSIUM CL 10 MEQ TAB PO ONE ×2 (09:29→19:02)
[2018-04-29] MEDS ORDERED: MAGNESIUM SULF 1 GM/DEXTROSE 100 ML IV ONE (09:30)
[2018-04-29] MEDS: MYCOPHENOLATE MOFETIL 250 MG CAP PO SCH ×2 (09:53→22:30)
[2018-04-29] MEDS: ENOXAPARIN 30 MG/0.3 ML SYR SC SCH (09:53)
[2018-04-29] MEDS: LOSARTAN POTASSIUM 50 MG TAB PO SCH (09:54)
[2018-04-29] MEDS: SODIUM BICARBONATE 650 MG TAB PO SCH ×3 (09:54→22:31)
[2018-04-29] MEDS: VENLAFAXINE HCL 75 MG TAB PO SCH (09:54)
[2018-04-29] MEDS: CHOLECALCIFEROL VIT D3 1,000 UNITS TAB PO SCH (09:54)
[2018-04-29] MEDS: predniSONE 5 MG TAB PO SCH (09:55)
[2018-04-29] MEDS: ONDANSETRON DISINTEGRATING 4 MG TAB PO PRN ×2 (10:03→20:41)
[2018-04-29] MEDS: POTASSIUM CL IV SCH (13:01)
[2018-04-29] MEDS: LR IV SCH (13:01)
--- NOTE | 2018-04-29 14:59 | HOSPPROG ---
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 PLANS: * Continue IV hydration * Follow renal function labs closely * Increase activity as she is able * Diet as tolerated * Conservative measures for her back pain, will not use nonsteroidals due to her renal issues * Continue CellCept for lupus Seen by me today on hospitals rounds as well as multidisciplinary rounds will need ongoing IV therapy here SUBJECTIVE: Patient still feels fairly ill and weak Continues to have multiple loose stools through the day so far and during the night last night Less nausea but did vomit her potassium supplements today OBJECTIVE Vitals reviewed: Sinus tachycardia in the 105-110 range this morning but stable blood pressure respirations and no fever Deicer Repairer, my review: Sinus tach Exam: alert oriented, fairly tired appearing Generalized weakness is noted skin warm dry color ok resps not labored lungs clear BSs heart regular abd soft nondistended nontender, bowel sounds present limbs warm, no edema iv site ok Laboratory data: Potassium 3.2 Objective: Vital Signs Temp Pulse Resp BP Pulse Ox 36.9 C 105 H 12 156/76 H 93 04/29/18 07:38 04/29/18 07:38 04/29/18 07:38 04/29/18 07:38 04/29/18 07:38 Laboratory Results 04/28/18 03:57 04/29/18 08:00 04/28/18 04/29/18 04/30/18 06:59 06:59 06:59 Intake Total 1236 4250 Output Total 2050 800 Balance -814 3450 - Time Spent With Patient Time Spent with Patient: greater than 25 minutes Time Spent with Patient: Greater than 25 minutes spent on this patients care, greater than 50% of time spent counseling, educating, and coordinating care regarding the above mentioned plan. ICD10 Worksheet Patient Problems: Problems Problem Status Onset Diarrhea Acute Hypokalemia Acute
[2018-04-29] MEDS ORDERED: POTASSIUM CL 20 MEQ/15 ML UDCUP PO ONE (20:30)
[2018-04-29] MEDS: ATORVASTATIN CALCIUM 10 MG TAB PO SCH (22:30)
[2018-04-30] MEDS: LEVOTHYROXINE 75 MCG TAB PO SCH (06:25)
[2018-04-30] MEDS: POTASSIUM CL IV SCH (08:31)
[2018-04-30] MEDS: LR IV SCH (08:31)
[2018-04-30] MEDS: MYCOPHENOLATE MOFETIL 250 MG CAP PO SCH (08:31)
[2018-04-30] MEDS: SODIUM BICARBONATE 650 MG TAB PO SCH ×2 (08:35→17:43)
[2018-04-30] MEDS: VENLAFAXINE HCL 75 MG TAB PO SCH (08:36)
[2018-04-30] MEDS: CHOLECALCIFEROL VIT D3 1,000 UNITS TAB PO SCH (08:36)
[2018-04-30] MEDS: predniSONE 5 MG TAB PO SCH (08:37)
[2018-04-30] MEDS: FAMOTIDINE 20 MG TAB PO SCH (08:37)
[2018-04-30] MEDS: LOSARTAN POTASSIUM 50 MG TAB PO SCH (08:41)
[2018-04-30] MEDS ORDERED: ENOXAPARIN 40 MG/0.4 ML SYR SC SCH (09:00)
[2018-04-30] MEDS: ACETAMINOPHEN 325 MG TAB PO PRN (09:23)
--- NOTE | 2018-04-30 14:20 | ASMTCMCOM ---
CM Note CM Note Notes: Hetal from [facility] called to say she could not find an MD to sign home health orders since [place] from [place] of state; however, I called patient's daughter who said that patient had seen Dr Morales Townsend here and that he was serving as her local PCP. This means that he will likely sign off on home care orders. I updated Hetal[facility]. Discharge plan remains home (to her daughter's) with [facility]. Date Signed: 04/29/2018 12:56 PM Electronically Signed By:Jennifer Plummer RN
[2018-04-30 15:28] VITALS: BP 136/86
--- NOTE | 2018-04-30 16:39 | PDIAF ---
- Diagnosis Diagnosis: norovirus, dehydration, generalized weakness Code Status: Full Code - Medication Management Discharge Medications: electronically signed and located in the Home Medication List. - Orders Services needed: Home Care, Registered Nurse, Physical Therapy Home Care Face to Face: I certify that this patient was under my care and that I had the required [id number] encounter meeting the encounter requirements on the discharge day. My findings support the fact that the patient is homebound as defined in Home Care Face to Face Continued: CMS Chapter 7 Medicare Benefits Manual 30.1.1 , The condition of the patient is such that there exists a normal inability to leave home and consequently, leaving home would require a considerable and taxing effort. Isolation Type: Contact Isolation, Droplet Isolation Diet Recommendation: no restrictions on diet Diet Texture: Regular Texture Diet Additional Instructions: Keep well hydrated Include fruits, fruit juices, broths/soups, or use gatorade or pedialyte to help get sodium and potassium Do not prepare food for or serve food to other people for at least 10 more days Clean your hands frequently, get some purell to help clean your hands - Follow Up Care Current Providers and Referrals: Morales Townsend, DO [Primary Care Provider] - As per Instructions
--- NOTE | 2018-04-30 16:48 | ASMTLACE ---
LACE Length of stay for Answers: 4-6 days current admission Acuity / Level of Answers: Yes Care: Did the patient have an inpatient admission? Comorbidities - select Answers: Moderate or severe liver all that apply or renal disease Opioid dependence / Chronic pain Other Notes: Lupus # of Emergency department Answers: 1-2 visits in the last 6 months Score: 17 Date Signed: 04/30/2018 04:48 PM Electronically Signed By:Jennifer Plummer RN
--- NOTE | 2018-04-30 16:49 | ASMTDCNOTE ---
Case Management Discharge Discharge Order Complete? Answers: Yes Patient to Obtain Answers: Independently Medications Transportation Arranged Answers: Family/Friends Faxed Final Orders Answers: Yes Family Notified Answers: Yes Discharge Comments Notes: Patient discharged to her daughter's house. [facility] Orders sent. Date Signed: 04/30/2018 04:49 PM Electronically Signed By:Jennifer Plummer RN
--- NOTE | 2018-04-30 17:36 | PDDCSUM ---
Discharge Summary Discharge Summary: DISCHARGE DIAGNOSES: * norovirus gastroenteritis * dehydration * acute renal failure due to above * metabolic acidosis due to above * immune deficiency related to chronic systemic lupus and CellCept therapy * pseudotumor cerebral new PROCEDURES: Abdominal ultrasound without concerning features or any findings to suggest cause of her symptoms HOSPITAL COURSE SUMMARY: This patient who traveled here by car from [place] developed a severe gastroenteritis which turns out to be norovirus which is prevalent in our community right now. She came to the hospital with signs of dehydration with some acute renal failure and metabolic acidosis. She does have lupus intake CellCept. She is also on acetazolamide chronically for pseudotumor. She was admitted the hospital and treated with IV hydration and her diuretic was held briefly. Her systems were initially fairly persistent and she required several days of ongoing therapy here but at this point she is now eating and drinking well, her diarrhea slowed greatly and she is up and walking about with much better strength. She has required a bit of potassium replacement here. There been no other complications no other organ failures. Her renal function improved quite nicely during the course of her stay. At this point she is stable for discharge home. The patient understands that she has a highly contagious infectious illness and that she should not prepare food for or serve food to any others for at least 10 more days and perhaps longer if her symptoms do not resolve. She understands to keep well hydrated and we have recommended that she get some Pedialyte or Gatorade to help with electrolytes and eat fruit to help with that as well. PENDING TEST RESULTS: None MEDICATION CHANGES: She will hold off on restarting her acetazolamide for another 3-5 days until her diarrhea resolves FOLLOW-UP PLAN: With her primary care physician upon return to [place] She is to be seen by home nursing and physical therapy services at her daughter' s house while here in [place] Greater than 35 minutes bedside and care coordination time today
[2018-04-30] MEDS: oxyCODONE IR 5 MG TAB PO PRN (18:34)
== END 2018-04-30 18:38 | disposition home health service (06) | DRG 392 ==
LOC: F2W 17:47 → OBSVTOIN 04-25 13:20
PROVIDERS: ADMIT Family Medicine; ATTEND Family Medicine
DX: A08.11 Acute gastroenteropathy due to Norwalk agent (principal); E87.1 Hypo-osmolality and hyponatremia; N17.9 Acute kidney failure, unspecified; R82.71 Bacteriuria; R01.1 Cardiac murmur, unspecified; E87.2 Acidosis; M32.14 Glomerular disease in systemic lupus erythematosus; N18.3 Chronic kidney disease, stage 3 (moderate); M06.9 Rheumatoid arthritis, unspecified; E03.9 Hypothyroidism, unspecified; I10 Essential (primary) hypertension; G93.2 Benign intracranial hypertension; Z96.651 Presence of right artificial knee joint
CPT/HCPCS: 97110-GP; 97116-GP; 97161-GP; 97166-GO; 97530-GP; 97535-GO; G0378; G8978-GP-CJ; G8979-GP-CI; G8980-GP-CI; G8987-GO-CI; G8988-GO-CI; J0360; J1650; J2550; J3475; J3480; J7512